=== PATIENT | male | born 2000 | race Caucasian/White ===

== ENCOUNTER 2022-03-19 03:35 | Emergency (ER) | payer BC ==
[~2022-03-19] VITALS: Ht 177.8 cm; Wt 54.4 kg
[2022-03-19 03:36] VITALS: BP 130/56
[2022-03-19] MEDS: ONDANSETRON 4 MG/2 ML VIAL IVP ONE (04:01)
[2022-03-19] MEDS: NACL 0.9% 1,000 ML IV ONE (04:10)
[2022-03-19] MEDS: IBUPROFEN 800 MG TAB PO ONE (04:15)
[2022-03-19 04:26] LABS: BASOPHILS % (AUTO) 0.2 % (0.0-2.0); EOSINOPHILS # (AUTO) 0.2 K/uL (0-0.4); EOSINOPHILS % (AUTO) 1.6 % (0.0-4.0); HEMOGLOBIN 14.3 g/dL (12.0-18.0); LYMPHOCYTES # (AUTO) 0.4 K/uL (2.0-11.5); LYMPHOCYTES % (AUTO) 2.9 % (20.5-51.1); MEAN CORPUSCULAR HEMOGLOBIN 29 pg (27-31); MEAN CORPUSCULAR HGB CONC 34 g/dL (33-37); MEAN CORPUSCULAR VOLUME 86.2 fL (80-94); MONOCYTES # (AUTO) 0.9 K/uL (0.8-1.0); MONOCYTES % (AUTO) 6.7 % (1.7-9.3); NEUTROPHILS # (AUTO) 12.3 K/uL (1.8-7.7); NEUTROPHILS % (AUTO) 88.6 % (42.2-75.2); PLATELET COUNT (AUTO) 247 K/uL (140-450); RED BLOOD CELL COUNT(AUTO) 4.88 MIL/uL (4.20-6.10); RED CELL DISTRIBUTION WIDTH 13.4 % (11.6-13.7); WHITE BLOOD COUNT (AUTO) 13.9 K/uL (4.5-11.0)
[2022-03-19 04:27] LABS: ALBUMIN 4.1 g/dL (3.4-5.0); CARBON DIOXIDE 25.7 mmol/L (21-32); CREATININE 0.9 mg/dL (0.6-1.3); POTASSIUM 3.7 mmol/L (3.5-5.1); TOTAL BILIRUBIN 0.6 mg/dL (0.0-1.0)
[2022-03-19 05:28] LABS: APPEARANCE,URINE CLEAR (CLEAR); BILIRUBIN,URINE NEGATIVE (NEGATIVE); BLOOD, URINE NEGATIVE (NEGATIVE); COLOR,URINE YELLOW (YELLOW); LEUKOCYTE ESTERASE ,URINE NEGATIVE (NEGATIVE); NITRITE, URINE POSITIVE (NEGATIVE); UGLUCOSE NEGATIVE (NEGATIVE)
[2022-03-19 05:31] LABS: RBC,URINE 0-5 /HPF (0-5); WBC,URINE 0-5 /HPF (0-5)
[2022-03-19] MEDS ORDERED: ONDA-188 PO (06:20)
[2022-03-19] MEDS ORDERED: ACET-10509 PO (06:20)
[2022-03-19] MEDS: METOCLOPRAMIDE 10 MG/2 ML INJ VIAL IVP ONE (06:34)
[2022-03-19] MEDS: diphenhydrAMINE 50 MG/ML VIAL IVP ONE (06:34)
[2022-03-19 06:53] VITALS: BP 104/44
== END 2022-03-19 06:56 | disposition home or self-care (01) ==
LOC: MED 03:35
DX: A08.4 Viral intestinal infection, unspecified (principal); R11.2 Nausea with vomiting, unspecified; R50.9 Fever, unspecified; Z20.822 Contact with and (suspected) exposure to COVID-19; Z90.49 Acquired absence of other specified parts of digestive tract; Z91.018 Allergy to other foods
CPT/HCPCS: 36415; 71045; 80053; 81001; 83690; 85025; 87426; 87804; 96361; 96374; 96375; 99284; J1200; J2405; J2765; J7030; Q0092